=== PATIENT | male | born 1985 | race Hispanic/Latino ===

== ENCOUNTER 2025-03-03 13:38 | Emergency (ER) | payer OTHER ==
[~2025-03-03] VITALS: Ht 172.7 cm; Wt 75.0 kg
[2025-03-03] MEDS ORDERED: JARDIANCE10 MG PO (16:38)
[2025-03-03] MEDS ORDERED: RELION NOV100 UNIT/1 SUB-Q (16:38)
[2025-03-03] MEDS ORDERED: AMOX TR-K CLV1 EAC1 PO (19:01)
[2025-03-03 19:16] VITALS: BP 134/95
== END 2025-03-03 19:17 | disposition home or self-care (01) ==
LOC: ED 13:38
DX: E11.9 Type 2 diabetes mellitus without complications (principal); M79.672 Pain in left foot; M79.671 Pain in right foot; I10 Essential (primary) hypertension; Z79.899 Other long term (current) drug therapy
CPT/HCPCS: 99282